=== PATIENT | male | born 1990 | race African-American/Black ===

== ENCOUNTER 2019-10-10 21:08 | Emergency (ER) | payer OTHER ==
[2019-10-10] MEDS ORDERED: predniSONE 20 MG TAB ONE (21:42)
[2019-10-10] MEDS ORDERED: hydrOXYzine 25 MG TAB ONE (21:43)
[2019-10-10] MEDS ORDERED: hydrOXYzine 25 MG TAB PO SCH (21:45)
[2019-10-10] MEDS ORDERED: predniSONE 20 MG TAB PO SCH (22:00)
== END 2019-10-10 21:59 ==
LOC: ERS 21:08
DX: L50.1 Idiopathic urticaria (principal); G40.909 Epilepsy, unspecified, not intractable, without status epilepticus
CPT/HCPCS: 99283; J7512